=== PATIENT | female | born 1930 | race Caucasian/White ===

== ENCOUNTER 2018-02-11 11:53 | Emergency (ER) | payer MEDICARE ==
[~2018-02-11] VITALS: Ht 157.5 cm; Wt 63.5 kg
[2018-02-11 12:00] VITALS: Ht 157.5 cm; Wt 63.5 kg
[2018-02-11 13:46] LABS: BASOPHIL % 0.4 % (0-2); RED CELL DISTRIBUTION WIDTH 13.6 % (11.5-14.5)
[2018-02-11 13:57] LABS: PLATELET COUNT 650 x10^3mcL (130-400)
[2018-02-11 14:04] LABS: CK-MB 1.7 ng/mL (0-3.6)
[2018-02-11 14:08] LABS: ALKALINE PHOSPHATASE 189 U/L (46-116); ALT/SGPT 16 U/L (14-59); AST/SGOT 17 U/L (15-37); BILIRUBIN TOTAL 0.27 mg/dL (0.20-1.00); CARBON DIOXIDE 21.9 mmol/L (21-32); CHLORIDE SERUM 103 mmol/L (98-107); CREATININE SERUM 2.5 mg/dL (0.6-1.0); GLUCOSE SERUM 108 mg/dL (74-106); POTASSIUM SERUM 3.6 mmol/L (3.5-5.1); SODIUM SERUM 139 mmol/L (136-145); TOTAL PROTEIN, SERUM 6.5 g/dL (6.4-8.2)
[2018-02-11 14:10] LABS: microscopic required? YES; urine erythrocyte TRACE (NEGATIVE)
[2018-02-11 14:11] LABS: ALBUMIN 1.7 g/dL (3.4-5.0)
[2018-02-11 18:20] VITALS: BP 103/56
== END 2018-02-11 18:20 | disposition short-term general hospital (02) ==
LOC: ED 11:53
PROVIDERS: Emergency Medicine
DX: N39.0 Urinary tract infection, site not specified (principal); R91.8 Other nonspecific abnormal finding of lung field; I10 Essential (primary) hypertension; E11.9 Type 2 diabetes mellitus without complications; Z95.0 Presence of cardiac pacemaker
CPT/HCPCS: 83880; 87491; 87591; J0696; J7030; Q0092